=== PATIENT | male | born 1960 | race American Indian/Alaskan Native ===

== ENCOUNTER 2016-11-20 22:14 | Emergency (ER) | payer OTHER ==
[2016-11-20 23:57] LABS: Basophils % (Auto) 0.6 % (0.0-1.8); Eosinophils % (Auto) 0.5 % (0.0-4.3); Hemoglobin 18.6 gm/dl (11.8-15.2); Mean Corpuscular HGB Conc 33 % (32-34); Mean Corpuscular Hemoglobin 27 pg (28-32); Mean Corpuscular Volume 82 fl (84-94); Platelet Count 225 K/mm3 (140-440); Red Blood Count 6.83 M/mm3 (3.65-5.03); Red Cell Distribution Width 18.5 % (13.2-15.2); White Blood Count 10.7 K/mm3 (4.5-11.0)
[2016-11-21 00:11] LABS: BUN/Creatinine Ratio 11.81; Blood Urea Nitrogen 13 mg/dL (9-20); Calcium 9.1 mg/dL (8.4-10.2); Carbon Dioxide 21 mmol/L (22-30); Chloride 103.4 mmol/L (98-107); Glucose 107 mg/dL (75-100); Potassium 3.5 mmol/L (3.6-5.0); Sodium 140 mmol/L (137-145)
[2016-11-21 00:18] LABS: Anion Gap 19 mmol/L
[2016-11-21] MEDS ORDERED: ATROVENT IH ONE ×2 (04:05→04:11)
[2016-11-21] MEDS ORDERED: PROVENTIL IH ONE ×2 (04:06→04:11)
--- NOTE | 2016-11-21 09:25 | XRay Report ---
CHEST 2 VIEWS: INDICATION: Shortness of breath. COMPARISON: 06/02/2015 FINDINGS: PA and lateral chest radiographs demonstrate stable mild exaggerated cardiomediastinal silhouette/slight cardiomegaly. Prominent lung markings, more so centrally and towards the bases. Mild peribronchial thickening may also again be noted. Minimal fluid or thickening along the fissures. No large pleural effusions or overt cephalization, however. Minimal left lung base atelectasis. Multilevel prominent right-sided thoracic spine osteophytes. CONCLUSION: Slight bronchitis and/or minimal central pulmonary vascular congestion may again be correlated for clinically, as described. Thank you for the opportunity to participate in this patient's care.
--- NOTE | 2016-11-21 10:49 | Emergency Department Report ---
HPI - General Chief Complaint: Dyspnea/Respdistress Time Seen by Provider: 11/21/16 10:39 - HPI HPI: Chief complaint: Left shoulder pain HPI: Patient is a 56-year-old male with a history of COPD on home O2 at 3 L came in for left shoulder pain that started 2 days ago. Patient describes it as sharp radiating down his left arm and increasing with movement of his left shoulder. Patient is on O2 all the time and states that his shortness of breath is no worse than usual. Patient states he had the flu approximately 10 days ago which has improved and went from body aches, headache, fever and cough to a cough productive of yellow sputum. Patient states he is noticed that when he exerts himself his pulse ox dropped even on O2 and improves when he rests. Patient denies any chest pain. Patient also has a history of hypertension. Patient was seen here 2 years ago and echocardiogram did not show any heart failure. Patient is a patient of Dr. Garcia and Dr Baez. Mode of arrival: private car Source: Patient old chart Began: See above Duration: Over pain for 2 days, cough for 10 days Context: See above Quality: Sharp Severity: Mild to moderate Improved with: See above Worsened with: See above Associated signs and symptoms: No chest pain, nausea, vomiting or diaphoresis. No edema ED Past Medical Hx - Past Medical History Previous Medical History?: Yes Hx Hypertension: Yes Hx Renal Disease: Yes Hx COPD: Yes Additional medical history: lung injury - Surgical History Past Surgical History?: No - Social History Smoking Status: Never Smoker Substance Use Type: None - Medications Home Medications: Home Medications Medication Instructions Recorded Confirmed Last Taken Type Aspirin EC [Aspirin Enteric Coated 81 mg PO QDAY 05/31/15 11/21/16 05/29/15 History TAB] Furosemide [Lasix TAB] 40 mg PO QDAY 05/31/15 11/21/16 05/29/15 History amLODIPine [Norvasc] 10 mg PO DAILY 05/31/15 11/21/16 05/29/15 History Lisinopril [Zestril TAB] 20 mg PO BID #60 tablet 06/03/15 11/21/16 Unknown Rx guaiFENesin [Mucinex] 1,200 mg PO Q12HR #20 tab 06/03/15 11/21/16 11/20/16 Rx Azithromycin [Zithromax TAB] 500 mg PO QDAY #3 tablet 11/21/16 Unknown Rx hydrALAZINE [Apresoline TAB] mg PO Q8H 11/21/16 Unknown History traMADol [Ultram 50 MG tab] 50 mg PO Q6HR PRN #20 tablet 11/21/16 Unknown Rx ED Review of Systems ROS: Stated complaint: CHAPARRITA Other details as noted in HPI ROS Constitutional: No fever ENT: No uri symptoms Cardiovascular: No chest pain Respiratory: See HPI GI: No nausea vomiting or diarrhea : No dysuria frequency or urgency, Skin: No rash Neuro: No focal weakness or numbness Psych: No depression Madi/lymph: No edema Physical Exam - Physical Exam Vital Signs: Vital Signs 11/20/16 11/21/16 11/21/16 22:20 03:59 04:43 Temperature 97.7 F 97.7 F Pulse Rate 81 78 Respiratory 18 20 Rate Respiratory 18 Rate [Posterior Bilateral] Blood Pressure 162/102 Blood Pressure 159/108 [Right] O2 Sat by Pulse 94 90 Oximetry 11/21/16 11/21/16 11/21/16 06:32 09:16 09:18 Temperature 97.8 F Pulse Rate 86 78 Respiratory 18 17 Rate Respiratory Rate [Posterior Bilateral] Blood Pressure 149/99 Blood Pressure 150/99 [Right] O2 Sat by Pulse 92 96 93 Oximetry 11/21/16 11/21/16 11/21/16 09:20 09:22 09:24 Temperature Pulse Rate 78 81 79 Respiratory 10 L 17 24 Rate Respiratory Rate [Posterior Bilateral] Blood Pressure 149/99 149/99 149/99 Blood Pressure [Right] O2 Sat by Pulse 93 94 91 Oximetry 11/21/16 11/21/16 11/21/16 09:26 09:28 09:33 Temperature 97.4 F L Pulse Rate 81 80 Respiratory 26 H 21 Rate Respiratory Rate [Posterior Bilateral] Blood Pressure 149/99 149/99 Blood Pressure [Right] O2 Sat by Pulse 92 91 92 Oximetry 11/21/16 09:34 Temperature Pulse Rate Respiratory 20 Rate Respiratory Rate [Posterior Bilateral] Blood Pressure Blood Pressure [Right] O2 Sat by Pulse 92 Oximetry Physical Exam: GENERAL: The patient is well-developed well-nourished . HEENT: Normocephalic. Atraumatic. Extraocular motions are intact. Patient has moist mucous membranes. NECK: Supple. No meningitic signs are noted. There is no adenopathy noted. CHEST/LUNGS: Clear to auscultation. There is no respiratory distress noted. HEART/CARDIOVASCULAR: Regular. There is no tachycardia. There is no gallop rub or murmur. ABDOMEN: Abdomen is soft, nontender. Patient has normal bowel sounds. There is no abdominal distention. SKIN: There is no rash. There is no edema. There is no diaphoresis. NEURO: The patient is awake, alert, and oriented. The patient is cooperative. The patient has no focal neurologic deficits. The patient has normal speech. MUSCULOSKELETAL: There is There is no limitation range of motion. There is no evidence of acute injury. ED Course Vital Signs 11/20/16 11/21/16 11/21/16 22:20 03:59 04:43 Temperature 97.7 F 97.7 F Pulse Rate 81 78 Respiratory 18 20 Rate Respiratory 18 Rate [Posterior Bilateral] Blood Pressure 162/102 Blood Pressure 159/108 [Right] O2 Sat by Pulse 94 90 Oximetry 11/21/16 11/21/16 11/21/16 06:32 09:16 09:18 Temperature 97.8 F Pulse Rate 86 78 Respiratory 18 17 Rate Respiratory Rate [Posterior Bilateral] Blood Pressure 149/99 Blood Pressure 150/99 [Right] O2 Sat by Pulse 92 96 93 Oximetry 11/21/16 11/21/16 11/21/16 09:20 09:22 09:24 Temperature Pulse Rate 78 81 79 Respiratory 10 L 17 24 Rate Respiratory Rate [Posterior Bilateral] Blood Pressure 149/99 149/99 149/99 Blood Pressure [Right] O2 Sat by Pulse 93 94 91 Oximetry 11/21/16 11/21/16 11/21/16 09:26 09:28 09:33 Temperature 97.4 F L Pulse Rate 81 80 Respiratory 26 H 21 Rate Respiratory Rate [Posterior Bilateral] Blood Pressure 149/99 149/99 Blood Pressure [Right] O2 Sat by Pulse 92 91 92 Oximetry 11/21/16 09:34 Temperature Pulse Rate Respiratory 20 Rate Respiratory Rate [Posterior Bilateral] Blood Pressure Blood Pressure [Right] O2 Sat by Pulse 92 Oximetry - Reevaluation(s) Reevaluation #1: 11/21/16 12:[address] Garcia. 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 ED Medical Decision Making - Lab Data Result diagrams: 11/20/16 23:35 11/20/16 23:35 Laboratory Tests 11/20/16 23:35 Troponin T < 0.010 - EKG Data -: EKG Interpreted by Me EKG shows normal: sinus rhythm Rate: normal (86) - EKG Data When compared to previous EKG there are: no significant change Interpretation: other (pulmonary disease pattern, incomplete right bundle branch block, right ventricular hypertrophy) - Radiology Data Radiology results: report reviewed (chest x-ray shows bilateral hilar congestion ) Critical care attestation.: If time is entered above; I have spent that time in minutes in the direct care of this critically ill patient, excluding procedure time. ED Disposition Clinical Impression: Acute bronchitis Qualifiers: Bronchitis organism: unspecified organism Qualified Code(s): J20.9 - Acute bronchitis, unspecified Degenerative joint disease, shoulder, left Qualifiers: Osteoarthritis type: unspecified Qualified Code(s): M19.012 - Primary osteoarthritis, left shoulder Disposition: DISCHARGED TO HOME OR SELFCARE Is pt being admited?: No Does the pt Need Aspirin: No Condition: Stable Instructions: Osteoarthritis (ED), Acute Bronchitis (ED) Prescriptions: Azithromycin [Zithromax TAB] 500 mg PO QDAY #3 tablet traMADol [Ultram 50 MG tab] 50 mg PO Q6HR PRN #20 tablet PRN Reason: Pain Referrals: EFE AGUIRRE MD [Staff Physician] - 3-5 Days CHRIS BUITRAGO MD [Staff Physician] - 7-10 days Time of Disposition: 12:03
--- NOTE | 2016-11-21 11:44 | XRay Report ---
LEFT SHOULDER RADIOGRAPHS INDICATION: Shoulder pain. COMPARISON: None similar. FINDINGS: Frontal and Y views of the left shoulder, 3 projections demonstrate normal humeral head contour, well positioned against the glenoid. Normal acromioclavicular joint. Mild degenerative spurring. Preserved scapular contour. Normal visualized soft tissues, left ribs and lung. CONCLUSION: No acute left shoulder radiographic abnormality with mild degenerative changes, as described. Thank you for the opportunity to participate in this patient's care.
[2016-11-21 12:08] VITALS: BP 178/97
== END 2016-11-21 12:30 | disposition home or self-care (01) ==
LOC: ED 22:14
DX: J20.9 Acute bronchitis, unspecified (principal); M19.012 Primary osteoarthritis, left shoulder; I10 Essential (primary) hypertension; J44.9 Chronic obstructive pulmonary disease, unspecified; J98.4 Other disorders of lung; Z79.82 Long term (current) use of aspirin
CPT/HCPCS: 36415; 71020; 80048; 84484; 85025; 93005; 93010; 94640